=== PATIENT | male | born 1990 | race Caucasian/White ===

== ENCOUNTER 2018-04-19 04:53 | Emergency (ER) | payer MEDICAID ==
[~2018-04-19] VITALS: Ht 185.4 cm; Wt 75.0 kg
[~2018-04-19 04:53] MED LIST: IBUP-1051 PO
[2018-04-19 04:57] VITALS: BP 120/60
[2018-04-19] MEDS ORDERED: PRED20TA PO (05:05)
[2018-04-19] MEDS ORDERED: DOXY100C43 PO (05:05)
[2018-04-19] MEDS ORDERED: ERYT1OIN6 EACHEYE (05:05)
[2018-04-19] MEDS ORDERED: ALBU18HF2 INH (05:05)
== END 2018-04-19 05:37 | disposition home or self-care (01) ==
LOC: ER 04:54
DX: H10.9 Unspecified conjunctivitis (principal); J20.9 Acute bronchitis, unspecified; Z72.0 Tobacco use; F11.10 Opioid abuse, uncomplicated; Z56.0 Unemployment, unspecified; Z79.899 Other long term (current) drug therapy; Z59.0 Homelessness
CPT/HCPCS: 99283

== ENCOUNTER 2020-02-15 18:04 | Emergency (ER) | payer MEDICAID ==
[~2020-02-15 18:04] MED LIST changes: +ALBU18HF2 INH
== END 2020-02-15 20:06 | disposition left against medical advice (07) ==
LOC: ER 18:05
DX: L08.9 Local infection of the skin and subcutaneous tissue, unspecified (principal); Z53.21 Procedure and treatment not carried out due to patient leaving prior to being seen by health care provider

== ENCOUNTER 2020-02-17 00:03 | Emergency (ER) | payer MEDICAID ==
[~2020-02-17] VITALS: Ht 185.4 cm; Wt 79.3 kg
[2020-02-17 00:05] VITALS: BP 110/86
[2020-02-17] MEDS ORDERED: sulfamethoxazole/trimethoprim DS (800/160mg) tablet PO ONE (00:15)
[2020-02-17] MEDS ORDERED: cephalexin 250mg capsule PO ONE (00:15)
[2020-02-17] MEDS ORDERED: CEPH-572 PO (00:16)
[2020-02-17] MEDS ORDERED: SULF1TAB49 PO (00:16)
[2020-02-17] MEDS ORDERED: acetaminophen 325mg tablet PO ONE (00:20)
== END 2020-02-17 00:32 | disposition home or self-care (01) ==
LOC: ER 00:04
DX: L02.511 Cutaneous abscess of right hand (principal); L03.113 Cellulitis of right upper limb; M79.641 Pain in right hand; Z86.14 Personal history of Methicillin resistant Staphylococcus aureus infection; Z60.2 Problems related to living alone; Z56.0 Unemployment, unspecified; Z59.0 Homelessness; Z79.2 Long term (current) use of antibiotics; Z79.899 Other long term (current) drug therapy
CPT/HCPCS: 99284

== ENCOUNTER 2020-04-15 20:13 | Emergency (ER) | payer MEDICAID ==
[~2020-04-15] VITALS: Ht 185.4 cm; Wt 84.1 kg
[2020-04-15 20:27] VITALS: BP 131/82
[2020-04-15] MEDS ORDERED: CefTRIAXone 1000mg IM Kit (w/lidocaine diluent) IM STA (20:48)
[2020-04-15] MEDS ORDERED: PENICILLIN G BENZATHINE 2,400,000 UNIT/4 ML SYRINGE IM STA (20:48)
[2020-04-15] MEDS ORDERED: azithromycin 250mg tablet PO ONE (20:50)
== END 2020-04-15 21:16 | disposition home or self-care (01) ==
LOC: ER 20:14
DX: A53.9 Syphilis, unspecified (principal); Z86.14 Personal history of Methicillin resistant Staphylococcus aureus infection; Z60.2 Problems related to living alone; Z59.0 Homelessness; Z56.0 Unemployment, unspecified; Z79.899 Other long term (current) drug therapy
CPT/HCPCS: 36415; 86592; 87491; 87591; 96372; 99284; J0561; J0696

== ENCOUNTER 2020-10-07 06:01 | Emergency (ER) | payer MEDICAID ==
[~2020-10-07] VITALS: Ht 185.4 cm; Wt 81.8 kg
[2020-10-07] MEDS ORDERED: CEPH-585 PO (06:19)
[2020-10-07] MEDS ORDERED: SULF1TAB49 PO (06:19)
[2020-10-07 06:36] VITALS: BP 125/79
== END 2020-10-07 06:31 | disposition home or self-care (01) ==
LOC: ER 06:01
DX: L02.31 Cutaneous abscess of buttock (principal); R46.0 Very low level of personal hygiene; Z86.14 Personal history of Methicillin resistant Staphylococcus aureus infection; Z60.2 Problems related to living alone; Z56.0 Unemployment, unspecified; Z59.0 Homelessness; Z79.2 Long term (current) use of antibiotics; Z79.899 Other long term (current) drug therapy
CPT/HCPCS: 99283

== ENCOUNTER 2021-11-04 18:35 | Emergency (ER) | payer MEDICAID ==
[~2021-11-04] VITALS: Ht 185.4 cm; Wt 73.0 kg
[2021-11-04] MEDS ORDERED: SULF1TAB48 PO (20:06)
[2021-11-04 20:57] VITALS: BP 101/71
[2021-11-04] MEDS ORDERED: sulfamethoxazole/trimethoprim DS (800/160mg) tablet PO SCH (21:00)
== END 2021-11-04 21:01 | disposition home or self-care (01) ==
LOC: ER 18:36
DX: L02.511 Cutaneous abscess of right hand (principal); R50.9 Fever, unspecified; F15.10 Other stimulant abuse, uncomplicated; Z59.00 Homelessness unspecified; Z56.0 Unemployment, unspecified; Z79.899 Other long term (current) drug therapy; Z79.1 Long term (current) use of non-steroidal anti-inflammatories (NSAID)
CPT/HCPCS: 99283